=== PATIENT | male | born 1965 | race Caucasian/White ===

== ENCOUNTER 2016-08-10 09:15 | Outpatient (CLI) | payer OTHER | END 2016-08-10 09:16 | disposition home or self-care (01) | DX: Z79.899 Other long term (current) drug therapy (principal); E78.00 Pure hypercholesterolemia, unspecified; R73.9 Hyperglycemia, unspecified ==

== ENCOUNTER 2022-09-11 10:33 | Outpatient (CLI) | payer OTHER ==
--- NOTE | 2022-09-11 11:12 | CARDIAC PROCEDURE NOTE ---
Stress Test Report Service Date: 09/11/22 Service Time: 11:00 Ordering Provider: Edelmira Thomas PA-C Indication for Test: Evaluate for an ischemic contribution to gradually increasing exertional dyspnea. Significant Medical History: Bruce is referred for a stress test today to evaluate progressive exertional dyspnea, dating back possibly as far as 2 years, though he says worse gradually over the past 6 to 8 months. As an example, [place] and has become progressively short of breath walking up from his garden to his home. Sometimes he experiences dyspnea with modest activity such as washing his hair in the shower. He denies rest/positional dyspnea, occurrence of any chest pain, pressure or discomfort whatsoever, but does note progressive coldness of his feet and onset of new erectile dysfunction approximately 6 months ago. He has longstanding asthma on a stable bronchodilator regimen which he believes confers adequate stability for this disease process. His weight is stable over the past few years in the range of 190-200 pounds. 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 He is scheduled to see a career coordinator in [place] in 2 days; he believes it may be Dr. Osman Menendez. Note that a stress echocardiogram was requested by the referring provider, and denied by patient's insurance plan thus necessitating an ETT without imaging today Cardiac Risk Factors: Positive for family history of CAD, in both parents, with father undergoing bypass surgery in his 50s and mother (diabetic also) being diagnosed with CAD and passing prior to age 60; severe hyperlipidemia with multiple statin intolerance, with ezetimibe treatment for approximately 6 years, resulting in most recent on treatment lipid panel (07/26) showing total cholesterol 281, triglycerides 105, HDLc 62, LDLc 150; "pre-diabetes", details unknown. Prior moderate tobacco smoking, quit in 1995, likely non-contributory. Denies history of hypertension treatment. Type of Stress Test: Exercise Treadmill Test (ETT) Procedure: -Exercise Treadmill Test- After signing informed consent, the patient performed treadmill exercise using a Lucio protocol. The patient exercised for 7 minutes 35 seconds and achieved a peak heart rate of 162 (100 percent predicted maximum heart rate for age), and an estimated workload of 9.5 METS. The test was terminated due to fatigue and shortness of breath; latter did not become manifest until late in stage 2. Resting heart rate: 74 Peak heart rate: 162 Normal response to exercise. Resting BP: 147/98 Peak exertional BP: 206/88 (increased to 213/89 at 3 minutes of recovery. Hypertensive at rest with physiologic BP response to exercise. Rhythm during exercise: Sinus rhythm throughout, with occasional monoform PVCs in stage 3. Symptoms: Dyspnea as described above; no report of any chest or abdominal pressure/pain/discomfort. EKG at rest showed normal sinus rhythm with probable mild RV conduction delay and delayed precordial R/S transition (at V5-V6). EKG at peak stress showed J-point depression with upsloping ST depression NOT meeting EKG criteria for ischemia. In Recovery HR declined rapidly/normally with a slower decrease in BP (after increase noted above). No imaging was ordered with this stress test. IDante MD, was present throughout this treadmill stress study and supervised it in its entirety. Summary: 1) Exercise tolerance modestly reduced for age/sex as evidenced by DEYVI of 14%. 2) Borderline resting EKG, with delayed precordial R/S transition. 3) Adequate level of exercise was achieved on this treadmill stress test. 4) Hypertensive at rest with likely physiologic BP response to exercise. 5) No ischemic changes by EKG criteria were seen at peak stress. 6) No imaging was ordered with this test. Conclusions/Recommendations: 1) No clear evidence of inducible ischemia by symptoms or EKG on this Lucio protocol ETT. 2) Threshold for significant dyspnea in late stage 2 is somewhat reassuring. 3) Additional testing to address mechanism(s) of dyspnea could be appropriate, will defer to patient's new career coordinator, whom patient will see in 2 days. He is given a copy of this report and selected EKG tracings for review at that visit. 4) Given risk profile and persistent LDL cholesterol elevation on ezetimibe he is likely an appropriate candidate for treatment with a PCSK-9 inhibitor.
== END 2022-09-11 10:34 | disposition home or self-care (01) ==
LOC: DI 10:33
PROVIDERS: ATTEND Physician Assistant Medical
DX: R06.09 Other forms of dyspnea (principal); Z82.49 Family history of ischemic heart disease and other diseases of the circulatory system; Z87.891 Personal history of nicotine dependence
CPT/HCPCS: 93016; 93017; 93018